=== PATIENT | male | born 1965 | race African-American/Black ===

== ENCOUNTER 2021-12-02 11:25 | Day surgery (SDC) | payer OTHER ==
[~2021-12-02] VITALS: Ht 180.3 cm; Wt 104.5 kg
[2021-12-02] MEDS ORDERED: MASON NATURAL2000 IU PO (12:04)
[2021-12-02] MEDS ORDERED: ZYRTEC 10MG10 MG PO (12:04)
[2021-12-02] MEDS ORDERED: VOLTAREN GEL 1%1 TU TP (12:06)
[2021-12-02] MEDS ORDERED: PROSCAR 5MG5 MG PO (12:07)
[2021-12-02] MEDS ORDERED: FLONASEALLERGY NS (12:08)
[2021-12-02] MEDS ORDERED: MOTRIN 800800 MG/TAB PO (12:09)
[2021-12-02] MEDS ORDERED: LOTRIMIN AF150 GM TOP (12:10)
[2021-12-02] MEDS ORDERED: ZOCOR 20MG20 MG PO (12:10)
[2021-12-02] MEDS ORDERED: CIALIS20 MG PO (12:11)
[2021-12-02 12:26] VITALS: BP 122/83; PULSE 52; TEMP 97.6
[2021-12-02 13:05] VITALS: BP 107/75; PULSE 55; TEMP 97.1
[2021-12-02 13:20] VITALS: BP 123/89; PULSE 49
[2021-12-02 13:35] VITALS: BP 122/96; PULSE 48
--- NOTE | 2021-12-02 13:40 | NUR ---
1305 PT RETURNED TO [facility] VIA CART. TRANSFERRED TO CHAIR WITH RN ASSIST. ALERT AND ORIENTED. MONITORS ATTACHED, INTERVALS AND ALARMS SET. VSS. PT DENIES PAIN OR NAUSEA. FOOD AND DRINK PROVIDED. CALL LIGHT IN REACH. 1320 VSS. PT DENIES DISCOMFORT. TOLERATING FOOD AND DRINK WELL. 1335 VSS. PT DENIES DISCOMFORT. REVIEWED DISCHARGE INSTRUCTIONS AND EDUCATION MATERIAL, ANSWERED ALL QUESTIONS. IV REMOVED WITHOUT COMPLICATIONS. PT ALLOWED TO DRESS. 1340 TRANSFERRED PT VIA WHEELCHAIR TO PERSONAL VEHICLE TO BE DRIVEN HOME BY FRIEND.
== END 2021-12-02 13:40 | disposition home or self-care (01) ==
LOC: SDCO 11:25
DX: Z12.11 Encounter for screening for malignant neoplasm of colon (principal); Z86.010 Personal history of colon polyps; E66.9 Obesity, unspecified; Z68.32 Body mass index [BMI] 32.0-32.9, adult
CPT/HCPCS: J2704; J7120